=== PATIENT | male | born 1970 | race Hispanic/Latino ===

== ENCOUNTER 2021-03-29 13:27 | Emergency (ER) | payer SELFPAY ==
[2021-03-29 15:40] VITALS: BP 187/103
--- NOTE | 2021-03-29 16:41 | Emergency Department Report ---
ED ENT HPI - General Chief complaint: Earache Stated complaint: EAR PAIN Time Seen by Provider: 03/29/21 15:51 Source: patient Mode of arrival: Ambulatory Limitations: No Limitations - History of Present Illness Initial comments: Patient is a 50-year-old male presents emergency room complaints of left-sided ear pain that began a week and a half ago. He states his hearing feels muffled on the left side. He denies any fever, drainage, bleeding, anything getting into the ear. He denies any injuries. Past medical history of hypertension, hyperlipidemia, CAD, diabetes. No allergies to medications. He states he has not yet taken his medications today but reports that he does have his medications. - Related Data Previous Rx's Medication Instructions Recorded Last Taken Type Aspirin EC [Ecotrin] 325 mg PO QDAY #30 tablet 06/26/15 Unknown Rx AtorvaSTATin [Lipitor] 80 mg PO QHS #30 tablet 06/26/15 Unknown Rx Clopidogrel [Plavix] 75 mg PO QDAY #30 tablet 06/26/15 Unknown Rx Isosorbide Dinitrate [Isordil] 20 mg PO BID #60 tablet 06/26/15 Unknown Rx Metoprolol [Lopressor TAB] 100 mg PO BID #60 tablet 06/26/15 Unknown Rx Nitroglycerin [Nitrostat] 0.4 mg SL .Q5MIN PRN #100 tablet 06/26/15 Unknown Rx hydroCHLOROthiazide [HCTZ] 25 mg PO QDAY #30 tablet 06/26/15 Unknown Rx lisinopriL [Zestril TAB] 20 mg PO BID #60 tablet 06/26/15 Unknown Rx Amoxicillin [Amoxicillin TAB] 875 mg PO BID 10 Days #20 tab 03/29/21 Unknown Rx Ofloxacin 0.3% [Floxin 0.3% Otic] 10 drops DAILY #1 bottle 03/29/21 Unknown Rx Allergies Allergy/AdvReac Type Severity Reaction Status Date / Time No Known Allergies Allergy Verified 08/29/13 03:42 ED Dental HPI - General Chief complaint: Earache Stated complaint: EAR PAIN Time Seen by Provider: 03/29/21 15:51 Source: patient Mode of arrival: Ambulatory Limitations: No Limitations - Related Data Previous Rx's Medication Instructions Recorded Last Taken Type Aspirin EC [Ecotrin] 325 mg PO QDAY #30 tablet 06/26/15 Unknown Rx AtorvaSTATin [Lipitor] 80 mg PO QHS #30 tablet 06/26/15 Unknown Rx Clopidogrel [Plavix] 75 mg PO QDAY #30 tablet 06/26/15 Unknown Rx Isosorbide Dinitrate [Isordil] 20 mg PO BID #60 tablet 06/26/15 Unknown Rx Metoprolol [Lopressor TAB] 100 mg PO BID #60 tablet 06/26/15 Unknown Rx Nitroglycerin [Nitrostat] 0.4 mg SL .Q5MIN PRN #100 tablet 06/26/15 Unknown Rx hydroCHLOROthiazide [HCTZ] 25 mg PO QDAY #30 tablet 06/26/15 Unknown Rx lisinopriL [Zestril TAB] 20 mg PO BID #60 tablet 06/26/15 Unknown Rx Amoxicillin [Amoxicillin TAB] 875 mg PO BID 10 Days #20 tab 03/29/21 Unknown Rx Ofloxacin 0.3% [Floxin 0.3% Otic] 10 drops DAILY #1 bottle 03/29/21 Unknown Rx Allergies Allergy/AdvReac Type Severity Reaction Status Date / Time No Known Allergies Allergy Verified 08/29/13 03:42 ED Review of Systems ROS: Stated complaint: EAR PAIN Other details as noted in HPI Comment: All other systems reviewed and negative ED Past Medical Hx - Past Medical History Previous Medical History?: Yes Hx Hypertension: Yes Hx Congestive Heart Failure: No Hx Diabetes: No Hx Asthma: No Hx COPD: No - Surgical History Past Surgical History?: No - Social History Smoking Status: Current Every Day Smoker - Medications Home Medications: Home Medications Medication Instructions Recorded Confirmed Last Taken Type Aspirin EC [Ecotrin] 325 mg PO QDAY #30 tablet 06/26/15 Unknown Rx AtorvaSTATin [Lipitor] 80 mg PO QHS #30 tablet 06/26/15 Unknown Rx Clopidogrel [Plavix] 75 mg PO QDAY #30 tablet 06/26/15 Unknown Rx Isosorbide Dinitrate [Isordil] 20 mg PO BID #60 tablet 06/26/15 Unknown Rx Metoprolol [Lopressor TAB] 100 mg PO BID #60 tablet 06/26/15 Unknown Rx Nitroglycerin [Nitrostat] 0.4 mg SL .Q5MIN PRN #100 tablet 06/26/15 Unknown Rx hydroCHLOROthiazide [HCTZ] 25 mg PO QDAY #30 tablet 06/26/15 Unknown Rx lisinopriL [Zestril TAB] 20 mg PO BID #60 tablet 06/26/15 Unknown Rx Amoxicillin [Amoxicillin TAB] 875 mg PO BID 10 Days #20 tab 03/29/21 Unknown Rx Ofloxacin 0.3% [Floxin 0.3% Otic] 10 drops DAILY #1 bottle 03/29/21 Unknown Rx ED Physical Exam - General Limitations: No Limitations General appearance: alert, in no apparent distress - Head Head exam: Present: atraumatic, normocephalic - Eye Eye exam: Present: normal appearance - ENT ENT exam: Present: mucous membranes moist, other (right TM and canal, left canal with signficant edema, unable to visualize TM, unable to put speculum completely through the ear) - Neurological Exam Neurological exam: Present: alert, oriented X3 - Psychiatric Psychiatric exam: Present: normal affect, normal mood - Skin Skin exam: Present: warm, dry, intact ED Course Vital Signs 03/29/21 15:37 Temperature 98.8 F Pulse Rate 97 H Respiratory 16 Rate Blood Pressure 187/103 [Left] O2 Sat by Pulse 96 Oximetry ED Medical Decision Making - Medical Decision Making Patient is a 50-year-old male presents emergency room complaints of left-sided ear pain that began a week and a half ago. He states his hearing feels muffled on the left side. He denies any fever, drainage, bleeding, anything getting into the ear. He denies any injuries. Past medical history of hypertension, hyperlipidemia, CAD, diabetes. No allergies to medications. He states he has not yet taken his medications today but reports that he does have his medications. Vitals with elevated blood pressure, patient has not yet taken his medication, he states that he does have his medication, discussed with patient to take his medication as prescribed by his doctor, follow-up with his primary care doctor, and discussed lifestyle modifications, the up-to-date medical literature does not recommend emergently lowering asymptomatic elevated blood pressure. on exam: right TM and canal, left canal with signficant edema, unable to visualize TM, unable to put speculum completely through the ear. Examination appears consistent with otitis externa. Unable to visualize TM to assess for otitis media. Patient will be given antibiotic eardrops and p.o. antibiotics and ENT follow-up. Advised patient please use medication as prescribed. Follow-up with the research soil scientist. Return to emergency room for any new or worsening symptoms. Please take your blood pressure medication as prescribed by your doctor. Eat a low-sodium diet. Increase your water intake. Keep a blood pressure log. Incorporate 30 to 60 minutes of daily exercise. Critical care attestation.: If time is entered above; I have spent that time in minutes in the direct care of this critically ill patient, excluding procedure time. ED Disposition Clinical Impression: Otitis externa Qualifiers: Otitis externa type: unspecified type Chronicity: acute Laterality: left Qualified Code(s): H60.502 - Unspecified acute noninfective otitis externa, left ear Disposition: 01 HOME / SELF CARE / HOMELESS Is pt being admited?: No Does the pt Need Aspirin: No Condition: Stable Additional Instructions: please use medication as prescribed. Follow-up with the research soil scientist. Return to emergency room for any new or worsening symptoms. Please take your blood pressure medication as prescribed by your doctor. Eat a low- sodium diet. Increase your water intake. Keep a blood pressure log. Incorporate 30 to 60 minutes of daily exercise. Prescriptions: Amoxicillin [Amoxicillin TAB] 875 mg PO BID 10 Days #20 tab Ofloxacin 0.3% [Floxin 0.3% Otic] 10 drops DAILY #1 bottle Referrals: JT MORENO MD [Staff Physician] - 3-5 Days ANU RUBIN MD [Referring] - 3-5 Days Time of Disposition: 16:39 Print Language: ESTONIAN
== END 2021-03-29 17:48 | disposition home or self-care (01) ==
LOC: ED 13:27
DX: H60.92 Unspecified otitis externa, left ear (principal); I10 Essential (primary) hypertension; F17.200 Nicotine dependence, unspecified, uncomplicated
CPT/HCPCS: 99282